=== PATIENT | female | born 1975 | race Caucasian/White ===

== ENCOUNTER 2017-02-08 14:12 | Emergency (ER) | payer MEDICAID, OTHER ==
[2017-02-08 14:28] VITALS: BP 149/99
[2017-02-08] MEDS ORDERED: Sodium Chloride 0.9% 1,000 ML IV ONE (15:22)
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
[2017-02-08 15:41] LABS: CHLORIDE,CL 104 mmol/L (98-115); SODIUM,NA 140 mmol/L (136-145)
[2017-02-08] MEDS ORDERED: Fluconazole 100 MG Tab PO ONE (16:30)
[2017-02-08] MEDS ORDERED: cefTRIAXone 1 GM Vial IVPUSH ONE (17:05)
[2017-02-08] MEDS ORDERED: Azithromycin 250 MG Tab PO ONE ×2 (17:05→18:16)
[2017-02-08] MEDS ORDERED: Ondansetron 4 MG/2 ML SDV IVPUSH ONE (17:59)
== END 2017-02-08 18:35 | disposition home or self-care (01) ==
LOC: KA.ED 14:12
DX: B20 Human immunodeficiency virus [HIV] disease (principal); B37.0 Candidal stomatitis; B37.3 Candidiasis of vulva and vagina; I48.91 Unspecified atrial fibrillation; Z87.01 Personal history of pneumonia (recurrent); F17.210 Nicotine dependence, cigarettes, uncomplicated; Z91.030 Bee allergy status; Z91.09 Other allergy status, other than to drugs and biological substances; Z90.49 Acquired absence of other specified parts of digestive tract
CPT/HCPCS: 36415; 71020; 80053; 81001; 85025; 86140; 93005; 96361; 96374; 96375; 99284; A9270; J0696; J2405; J7030

== ENCOUNTER 2017-03-16 22:50 | Emergency (ER) | payer MEDICAID ==
[2017-03-16 23:07] VITALS: BP 147/75
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
== END 2017-03-17 00:15 | disposition home or self-care (01) ==
LOC: KA.ED 22:50
DX: M54.2 Cervicalgia (principal); B20 Human immunodeficiency virus [HIV] disease; F41.9 Anxiety disorder, unspecified; F32.9 Major depressive disorder, single episode, unspecified; I48.91 Unspecified atrial fibrillation; D64.9 Anemia, unspecified; F17.210 Nicotine dependence, cigarettes, uncomplicated; Y04.8XXA Assault by other bodily force, initial encounter
CPT/HCPCS: 72040; 99283; 99284

== ENCOUNTER 2017-06-05 22:20 | Emergency (ER) | payer MEDICAID ==
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
[2017-06-05 23:49] LABS: CHLORIDE,CL 107 mmol/L (98-115); SODIUM,NA 139 mmol/L (136-145)
[2017-06-06 00:01] VITALS: BP 115/69
== END 2017-06-06 00:15 | disposition home or self-care (01) ==
LOC: KA.ED 22:20
DX: R07.89 Other chest pain (principal); F41.9 Anxiety disorder, unspecified; G43.909 Migraine, unspecified, not intractable, without status migrainosus; B20 Human immunodeficiency virus [HIV] disease; F17.210 Nicotine dependence, cigarettes, uncomplicated; Z79.899 Other long term (current) drug therapy; Z91.030 Bee allergy status; Z91.09 Other allergy status, other than to drugs and biological substances; Z87.01 Personal history of pneumonia (recurrent); Z87.440 Personal history of urinary (tract) infections
CPT/HCPCS: 36415; 71020; 80053; 80305; 81001; 83690; 84484; 85025; 93005; 99285